=== PATIENT | female | born 1985 | race Caucasian/White ===

== ENCOUNTER 2025-02-11 16:37 | Day surgery (SDC) | payer OTHER ==
[2025-02-11 16:46] VITALS: BMI 21.4
[2025-02-11 17:54] LABS: ABSOLUTE IMMATURE GRANULOCYTES 0.07 x10^3/uL (0.0-0.031); BASOPHILS # 0.05 x10^3/uL (0.01-0.08); EOSINOPHIL % 1.4 % (0.7-5.8); EOSINOPHILS # 0.18 x10^3/uL (0.04-0.36); MCHC 33.6 g/dl (32.2-35.5); MEAN CELL VOLUME 88.1 fl (79.4-94.8); MEAN PLT VOLUME 11.5 fl (9.4-12.3); MONOCYTE # 0.77 x10^3/uL (0.24-0.86); MONOCYTE % 6.0 % (4.7-12.5); RDW 13.2 % (12.1-16.8)
[2025-02-11 18:27] LABS: CO2 25.0 mmol/L (21-32); GLUCOSE,RANDOM 80.0 mg/dL (74-106)
[2025-02-11 18:30] LABS: CREATININE 0.7 mg/dL (0.55-1.3); SGOT/AST 17.0 U/L (15-37); SGPT/ALT 29.0 U/L (13-61)
[2025-02-11 18:32] LABS: TOT PROT 7.5 g/dl (6.4-8.2)
[2025-02-11 18:33] LABS: ALK PHOS 60.0 U/L (45-117)
[2025-02-11] MEDS ORDERED: MIDAZOLAM HCL 2 MG/2 ML SINGLE DOSE VIAL ONE (20:33)
[2025-02-11] MEDS ORDERED: PROPOFOL 1,000,000 MCG/100 ML VIAL ONE (20:33)
[2025-02-11] MEDS ORDERED: ONDANSETRON 4 MG/2 ML VIAL IVPUSH PRN (20:41)
[2025-02-11] MEDS ORDERED: LACTATED RINGERS SOLUTION 1,000 ML IV SCH (20:45)
[2025-02-11] MEDS ORDERED: PROPOFOL 20 ML ONE (20:49)
[2025-02-11] MEDS ORDERED: IBUPROFEN 400 MG TABLET (FP) PO PRN (22:46)
[2025-02-11 23:37] VITALS: BP 103/66; PULSE 53; RESP 18; TEMP 98.3
[2025-02-12] MEDS: ACETAMINOPHEN 325 MG TABLET (FP) PO PRN (00:29)
== END 2025-02-12 00:32 | disposition home or self-care (01) ==
LOC: JER 16:37 → JASUSAT 17:06 → UNDOADMIN 17:06 → JERBED 17:06 → J3W 21:50 → JASUSAT 02-12 00:32
PROVIDERS: ATTEND Obstetrics & Gynecology
PROC: 10D17ZZ Extraction of Products of Conception, Retained, Via Natural or Artificial Opening (ICD-10-PCS; principal; 2025-02-11 18:30)
DX: O02.1 Missed abortion (principal)
CPT/HCPCS: 36415; 80053; 85025; 85730; 86850; 86900; 86901; 88305-TC; 94760; 99285-25